=== PATIENT | male | born 1965 | race Two or more races ===

== ENCOUNTER 2021-12-30 09:45 | Day surgery (SDC) | payer OTHER ==
[2021-12-30] MEDS ORDERED: PERCOCET 5-3251 EACH PO (15:45)
== END 2021-12-30 17:45 | disposition home or self-care (01) ==
LOC: CIR.AMB 09:45
PROVIDERS: ATTEND Surgery
DX: N52.01 Erectile dysfunction due to arterial insufficiency (principal); N48.6 Induration penis plastica; Z20.822 Contact with and (suspected) exposure to COVID-19; I10 Essential (primary) hypertension; Z87.891 Personal history of nicotine dependence; Z85.46 Personal history of malignant neoplasm of prostate
CPT/HCPCS: 54405; C1813